=== PATIENT | male | born 1990 | race Caucasian/White ===

== ENCOUNTER 2018-12-23 00:09 | Emergency (ER) | payer SELFPAY, OTHER | END 2018-12-23 01:46 | disposition home or self-care (01) | LOC: JER 00:09 ==

== ENCOUNTER 2018-12-24 08:20 | Emergency (ER) | payer SELFPAY ==
[2018-12-24 08:25] VITALS: BP 114/78; PULSE 87; TEMP 97.8; BMI 25.0
[2018-12-24] MEDS ORDERED: guaiFENesin/CODEINE 10 ML UNIT-DOSE CUPS PO ONE (09:09)
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
== END 2018-12-24 10:05 | disposition home or self-care (01) ==
LOC: JER 08:20 → JERFT 08:20
DX: J02.0 Streptococcal pharyngitis (principal); B95.0 Streptococcus, group A, as the cause of diseases classified elsewhere; J06.9 Acute upper respiratory infection, unspecified
CPT/HCPCS: 87880; 99281-25

== ENCOUNTER 2019-07-29 07:56 | Emergency (ER) | payer OTHER ==
[2019-07-29 08:07] VITALS: BP 127/73; PULSE 89; TEMP 98; BMI 23.3
[2019-07-29] MEDS ORDERED: IBUPROFEN 600 MG TABLET (FP) PO ONE ×2 (08:23→08:29)
--- NOTE | 2019-07-29 08:26 | PDOC ---
History of Present Illness - General Chief Complaint: Pain Stated Complaint: PAIN Time Seen by Provider: 07/29/19 08:11 History Source: Patient Exam Limitations: Clinical Condition - History of Present Illness Initial Comments: 07/29/19 08:30 Patient with no significant past medical history present with complaint of one- week history of intermittent anterior left shoulder and upper left chest wall pain which came again while sleeping yesterday. Patient reported he sleeps on the left side of his body over his left arm. Denies numbness tingling. Patient report pain as pinching sensation to upper left shoulder and chest wall. Denies shortness of breath or palpitation, no nausea, vomiting, dizziness. Denies any other symptoms. Patient reports taking Aleve a week ago for symptoms which helped backslash taken anything else. Is this a multiple visit Asthma Patient?: No Timing/Duration: 1 week Past History - Past Medical History Allergies/Adverse Reactions: Allergies Allergy/AdvReac Type Severity Reaction Status Date / Time No Known Allergies Allergy Verified 07/29/19 07:58 Home Medications: Ambulatory Orders Acetaminophen [Tylenol] 650 mg PO PRN 12/23/18 Benzonatate [Tessalon Pearls -] 100 mg PO TID #21 capsule 12/23/18 Amox-Tr/K Cl [Augmentin - 875Mg Tablet] 1 tab PO BID #14 tablet 12/24/18 Guaifenesin Dm [Robitussin Dm -] 10 ml PO Q8H PRN #1 bottle 12/24/18 Methylprednisolone [Medrol Dose Ryan] 4 mg PO ASDIR #21 tablet 12/24/18 Naproxen 500 mg PO BID PRN #12 tablet 07/29/19 COPD: No CHF: No - Immunization History Immunization Up to Date: Yes - Psycho Social/Smoking Cessation Hx Smoking History: Never smoked Have you smoked in the past 12 months: No Hx Alcohol Use: No Drug/Substance Use Hx: No Review of Systems - Review of Systems Able to Perform ROS?: Yes Is the patient limited Lao proficient: No Constitutional: No: Chills, Fever, Malaise HEENTM: No: Symptoms Reported, See HPI, Eye Pain, Blurred Vision, Tearing, Recent change in vision, Double Vision, Cataracts, Ear Pain, Ocular Prothesis, Ear Discharge, Nose Pain, Nose Congestion, Tinnitus, Nose Bleeding, Hearing Loss, Throat Pain, Throat Swelling, Mouth Pain, Dental Problems, Difficulty Swallowing, Mouth Swelling, Other Respiratory: No: Symptoms reported, See HPI, Cough, Orthopnea, Shortness of Breath, SOB with Exertion, SOB at Rest, Stridor, Wheezing, Productive cough, Hemoptysis, Other Cardiac (ROS): No: Symptoms Reported, See HPI, Chest Pain, Edema, Irregular Heart Rate, Lightheadedness, Palpitations, Syncope, Chest Tightness, Other ABD/GI: No: Symptoms Reported, Nausea, Vomiting Musculoskeletal: Yes: Symptoms Reported, See HPI, Muscle Pain (anterior left shoulder pinching intermittent pain) Integumentary: No: Symptoms Reported, Bruising, Erythema Neurological: No: Symptoms reported, Headache, Numbness, Paresthesia, Tingling, Weakness, Dizziness All Other Systems: Reviewed and Negative *Physical Exam - Vital Signs Last Vital Signs Temp Pulse Resp BP Pulse Ox 98.0 F 89 18 127/73 99 07/29/19 07:58 07/29/19 07:58 07/29/19 07:58 07/29/19 07:58 07/29/19 07:58 - Physical Exam General Appearance: Yes: Nourished, Appropriately Dressed. No: Apparent Distress HEENT: positive: CARINA, Normal ENT Inspection, Normal Voice, Symmetrical, TMs Normal, Pharynx Normal Neck: positive: Supple. negative: Tender Respiratory/Chest: positive: Chest Tender (mild tenderness over upper anterior chest wall over clavicle), Lungs Clear, Normal Breath Sounds, Respiratory Distress, Accessory Muscle Use. negative: Labored Respiration, Crackles, Rales, Wheezing Cardiovascular: positive: Regular Rhythm, Regular Rate, S1, S2 (normal). negative: Murmur, Irregularly Irregular, Irregular Musculoskeletal: positive: Normal Inspection, Other (mild reproduceable point tenderness to anterior left shoulder and upper chest wall). negative: Decreased Range of Motion Extremity: positive: Normal Capillary Refill, Normal Inspection, Normal Range of Motion. negative: Swelling, Erythema Integumentary: positive: Normal Color. negative: Cyanotic, Erythema (to bite site), Swelling (to left leg over bite site) Neurologic: positive: temple meat cutter II-XII NML intact, Fully Oriented, Alert, Normal Mood/Affect, Normal Response, Motor Strength 5/5 Medical Decision Making - Medical Decision Making 07/29/19 08:39 Patient with no significant past medical history present with complaint of one- week history of intermittent anterior left shoulder and upper left chest wall pain which came again while sleeping yesterday. Patient reported he sleeps on the left side of his body over his left arm. Denies numbness tingling. Patient report pain as pinching sensation to upper left shoulder and chest wall. Denies shortness of breath or palpitation, no nausea, vomiting, dizziness. Denies any other symptoms. Patient reports taking Aleve a week ago for symptoms which helped backslash taken anything else. Clinical exam significant for mild point tenderness to left upper chest wall and anterior shoulder over second intercostal space and above left clavicle otherwise unremarkable exam. Patient in no acute distress. Normal cardio exam. Patient symptoms likely costochondritis and left shoulder pain from sleeping on left shoulder. Motrin 600 mg p.o. ordered for pain. Patient have follow-up appointment with PCP in 3 and advised to follow-up with PCP if symptoms. Patient advised on coming back to ED for worsening symptoms for reevaluation Discharge - Discharge Information Problems reviewed: Yes Clinical Impression/Diagnosis: Costochondritis, acute Condition: Stable Disposition: HOME - Admission No - Additional Discharge Information Prescriptions: Naproxen 500 mg PO BID PRN #12 tablet PRN Reason: pain - Follow up/Referral Referrals: Susana Ferguson NP [Primary Care Provider] - - Patient Discharge Instructions Patient Printed Discharge Instructions: DI for Costochondritis Additional Instructions: Your pain is likely chest wall pain which is muscle pain. Take Naproxen as needed for pain. Follow-up with your primary care as scheduled - Post Discharge Activity
== END 2019-07-29 08:32 | disposition home or self-care (01) ==
LOC: JER 07:56
DX: M94.0 Chondrocostal junction syndrome [Tietze] (principal)
CPT/HCPCS: 99282-25

== ENCOUNTER 2020-05-05 08:41 | Emergency (ER) | payer OTHER ==
[2020-05-05 09:03] VITALS: BP 126/90; PULSE 89; TEMP 97.2
[2020-05-05] MEDS ORDERED: ACETAMINOPHEN 500 MG TABLET (FP) PO ONE (09:19)
[2020-05-05] MEDS ORDERED: ACETAMINOPHEN 325 MG TABLET (FP) ONE (09:25)
== END 2020-05-05 09:52 | disposition home or self-care (01) ==
LOC: JER 08:41
DX: M94.0 Chondrocostal junction syndrome [Tietze] (principal)
CPT/HCPCS: 99283-25; C9803; U0003

== ENCOUNTER 2021-04-10 23:34 | Emergency (ER) | payer OTHER ==
[2021-04-10 23:43] VITALS: BP 124/78; PULSE 87; TEMP 98; BMI 24.7
[2021-04-11] MEDS ORDERED: SODIUM CHLORIDE 1,000 ML IV STA (00:17)
[2021-04-11 01:23] LABS: URINE APPEARANCE CLEAR; URINE BILIRUBIN NEGATIVE (NEGATIVE); URINE COLOR YELLOW; URINE GLUCOSE (UA) NEGATIVE (NEGATIVE); URINE KETONE NEGATIVE (NEGATIVE); URINE LEUK ESTERASE NEGATIVE (NEGATIVE); URINE NITRITE NEGATIVE (NEGATIVE); URINE PROTEIN NEGATIVE (NEGATIVE); URINE UROBILINOGEN 0.2 mg/dL (0.2-1.0)
[2021-04-11 01:24] LABS: EOS % 1.7 % (0-4.5); HEMATOCRIT 41.6 % (35.4-49); HEMOGLOBIN 14.8 GM/dL (11.7-16.9); LYMPH % 35.8 % (8-40); MCHC 35.6 g/dl (32.0-35.9); MEAN CELL VOLUME 92.7 fl (80-96); MEAN PLT VOLUME 8.6 fl (7.5-11.1); MONO % 9.6 % (3.8-10.2); NEUT % 51.9 % (42.8-82.8); PLATELET COUNT 213 10^3/uL (134-434); RBC 4.49 M/mm3 (4.00-5.60); RDW 12.6 % (11.9-15.9); WHITE BLOOD COUNT 5.6 K/mm3 (4.0-10.0)
[2021-04-11 01:55] LABS: CHLORIDE 105 mmol/L (98-107); SODIUM 140 mmol/L (136-145)
[2021-04-11 01:57] LABS: ALBUMIN 4.2 g/dl (3.4-5.0); CALCIUM 8.7 mg/dL (8.5-10.1)
[2021-04-11 01:58] LABS: ANION GAP 7 MMOL/L (8-16); BLOOD UREA NITROGEN 12.7 mg/dL (7-18); CO2 27 mmol/L (21-32); GLUCOSE,RANDOM 108 mg/dL (74-106); LIPASE 87 U/L (73-393); MAGNESIUM 2.2 mg/dL (1.8-2.4)
[2021-04-11 02:01] LABS: CREATININE 0.9 mg/dL (0.55-1.3); SGOT/AST 20 U/L (15-37); SGPT/ALT 28 U/L (13-61)
[2021-04-11 02:02] LABS: BILIRUBIN,TOTAL 0.3 mg/dL (0.2-1)
[2021-04-11 02:03] LABS: ALK PHOS 88 U/L (45-117); TOT PROT 7.1 g/dl (6.4-8.2)
== END 2021-04-11 03:44 | disposition home or self-care (01) ==
LOC: JER 23:34
DX: R10.9 Unspecified abdominal pain (principal); R07.9 Chest pain, unspecified
CPT/HCPCS: 36415; 74177-TC; 80053; 81003; 82550; 82553; 83690; 83735; 84484; 85025; 87086; 93005; 93010; 99285-25; C9803; U0003; U0005

== ENCOUNTER 2023-02-05 17:59 | Emergency (ER) | payer OTHER ==
[2023-02-05 18:04] VITALS: BP 116/80; PULSE 84; RESP 18; TEMP 98.3; BMI 28.1
[2023-02-05] MEDS ORDERED: FLUORESCEIN NA 1 EA STRIP OD ONE (18:22)
[2023-02-05] MEDS ORDERED: TETRACAINE 0.5% HCL 0.6ML DROPPER.BOTTLE OD ONE (18:22)
[2023-02-05] MEDS ORDERED: TETRACAINE 0.5% OPHTH SOLN 2 ML BOTTLE ONE (18:27)
[2023-02-05] MEDS ORDERED: FLUORESCEIN NA 1 EA STRIP ONE (18:29)
== END 2023-02-05 18:43 | disposition home or self-care (01) ==
LOC: JER 17:59
DX: H57.89 Other specified disorders of eye and adnexa (principal); H57.11 Ocular pain, right eye; H10.11 Acute atopic conjunctivitis, right eye
CPT/HCPCS: 99283-25